=== PATIENT | male | born 1960 | race Caucasian/White ===

== ENCOUNTER → 2019-11-08 | Outpatient (CLI) | payer OTHER | END | disposition home or self-care (01) | LOC: ECT 10:59 | DX: F33.2 Major depressive disorder, recurrent severe without psychotic features (principal); F41.9 Anxiety disorder, unspecified; G47.33 Obstructive sleep apnea (adult) (pediatric); E78.5 Hyperlipidemia, unspecified; Z72.89 Other problems related to lifestyle; R45.851 Suicidal ideations; Z79.899 Other long term (current) drug therapy ==

== ENCOUNTER 2019-12-17 06:27 | Outpatient (RCR) | payer OTHER ==
[2019-12-17] VITALS (7 sets, daily range): BP systolic 141–171; BP diastolic 83–99
[~2019-12-17] VITALS: Ht 177.8 cm; Wt 93.0 kg
[2019-12-17] MEDS ORDERED: Succinylcholine 20mg/ml 10ml vial ONE (06:28)
[2019-12-17] MEDS ORDERED: Ketorolac 30mg Inj ONE (06:28)
[2019-12-17] MEDS ORDERED: NS 500ML ONE (06:28)
[2019-12-17] MEDS ORDERED: Methohexital Sodium Syr 100mg/10ml IVP ONE (06:28)
[2019-12-17] MEDS ORDERED: Ketorolac 30mg Inj IM ONE (10:30)
[2019-12-20] MEDS ORDERED: Ketorolac 30mg Inj ONE (09:00)
[2019-12-20] MEDS ORDERED: NS 500ML ONE (09:00)
[2019-12-20] MEDS ORDERED: Methohexital Sodium Syr 100mg/10ml IVP ONE (09:00)
[2019-12-20] MEDS ORDERED: Succinylcholine 20mg/ml 10ml vial ONE (09:00)
[2019-12-20 12:43] VITALS: BP 142/89
[2019-12-20] MEDS ORDERED: Lidocaine 2% 100mg/5ml Carp IV PRN (13:09)
[2019-12-20] MEDS ORDERED: Atropine Sulfate 0.4mg/ml inj IVP PRN (13:09)
[2019-12-20 13:10] VITALS: BP 175/54
[2019-12-20 13:15] VITALS: BP 155/89
[2019-12-20 13:20] VITALS: BP 161/84
[2019-12-20 13:25] VITALS: BP 152/80
== END 2019-12-21 | disposition home or self-care (01) ==
LOC: ECT 06:27
DX: F33.2 Major depressive disorder, recurrent severe without psychotic features (principal); G47.33 Obstructive sleep apnea (adult) (pediatric); E78.5 Hyperlipidemia, unspecified; F41.9 Anxiety disorder, unspecified
CPT/HCPCS: 90870; J0330; J1885; J2405; J7040

== ENCOUNTER 2019-12-22 10:45 | Outpatient (RCR) | payer OTHER ==
[~2019-12-22] VITALS: Ht 177.8 cm; Wt 93.0 kg
[~2019-12-22 10:45] MED LIST: Ketorolac 30mg Inj ONE; Methohexital Sodium Syr 100mg/10ml IVP ONE; NS 500ML ONE; Succinylcholine 20mg/ml 10ml vial ONE
[2019-12-22] MEDS ORDERED: Ketorolac 30mg Inj ONE ×3 (10:46)
[2019-12-22] MEDS ORDERED: Methohexital Sodium Syr 100mg/10ml IVP ONE ×3 (10:46)
[2019-12-22] MEDS ORDERED: NS 500ML ONE ×3 (10:46)
[2019-12-22] MEDS ORDERED: Succinylcholine 20mg/ml 10ml vial ONE ×3 (10:46)
[2019-12-22 11:05] VITALS: BP 138/80
[2019-12-22 11:18] VITALS: BP 185/80
[2019-12-22 11:23] VITALS: BP 176/77
[2019-12-22 11:28] VITALS: BP 163/89
[2019-12-22 11:33] VITALS: BP 160/82
[2019-12-27] MEDS ORDERED: Ketorolac 30mg Inj ONE (06:00)
[2019-12-27] MEDS ORDERED: Methohexital Sodium Syr 100mg/10ml IVP ONE (06:00)
[2019-12-27] MEDS ORDERED: NS 500ML ONE (06:00)
[2019-12-27] MEDS ORDERED: Succinylcholine 20mg/ml 10ml vial ONE (06:00)
[2019-12-27 10:50] VITALS: BP 140/86
[2019-12-27] MEDS ORDERED: Atropine Sulfate 0.4mg/ml inj IVP PRN (11:09)
[2019-12-27] MEDS ORDERED: Lidocaine 2% 100mg/5ml Carp IV PRN (11:09)
[2019-12-27 11:10] VITALS: BP 159/82
[2019-12-27 11:15] VITALS: BP 172/89
[2019-12-27 11:20] VITALS: BP 146/72
[2019-12-27 11:25] VITALS: BP 164/88
[2019-12-29] MEDS ORDERED: NS 500ML ONE (06:00)
[2019-12-29] MEDS ORDERED: Succinylcholine 20mg/ml 10ml vial ONE (06:00)
[2019-12-29] MEDS ORDERED: Ketorolac 30mg Inj ONE (06:00)
[2019-12-29] MEDS ORDERED: Methohexital Sodium Syr 100mg/10ml IVP ONE (06:00)
[2019-12-29 10:07] VITALS: BP 136/90
[2019-12-29 10:18] VITALS: BP 186/94
[2019-12-29 10:23] VITALS: BP 161/76
[2019-12-29 10:28] VITALS: BP 166/98
[2019-12-29 10:33] VITALS: BP 153/87
[2019-12-31] MEDS ORDERED: Ketorolac 30mg Inj ONE (06:00)
[2019-12-31] MEDS ORDERED: NS 500ML ONE (06:00)
[2019-12-31] MEDS ORDERED: Succinylcholine 20mg/ml 10ml vial ONE (06:00)
[2019-12-31] MEDS ORDERED: Methohexital Sodium Syr 100mg/10ml IVP ONE (06:00)
[2019-12-31 10:09] VITALS: BP 145/98
[2019-12-31 10:22] VITALS: BP 178/93
[2019-12-31 10:27] VITALS: BP 185/90
[2019-12-31 10:32] VITALS: BP 166/87
[2019-12-31 10:37] VITALS: BP 163/89
[2020-01-03] MEDS ORDERED: NS 500ML ONE (07:00)
[2020-01-03] MEDS ORDERED: Ketorolac 30mg Inj ONE (07:00)
[2020-01-03] MEDS ORDERED: Succinylcholine 20mg/ml 10ml vial ONE (07:00)
[2020-01-03] MEDS ORDERED: Methohexital Sodium Syr 100mg/10ml IVP ONE (07:00)
[2020-01-03 11:16] VITALS: BP 148/94
[2020-01-03 11:35] VITALS: BP 181/92
[2020-01-03] MEDS ORDERED: Atropine Sulfate 0.4mg/ml inj IVP PRN (11:39)
[2020-01-03] MEDS ORDERED: Lidocaine 2% 100mg/5ml Carp IV PRN (11:39)
[2020-01-03 11:40] VITALS: BP 184/94
[2020-01-03 11:45] VITALS: BP 176/94
[2020-01-03 11:50] VITALS: BP 164/94
[2020-01-05] MEDS ORDERED: Methohexital Sodium Syr 100mg/10ml IVP ONE (08:00)
[2020-01-05] MEDS ORDERED: Ketorolac 60mg Inj IM ONE (08:00)
[2020-01-05] MEDS ORDERED: Succinylcholine 20mg/ml 10ml vial ONE (08:00)
[2020-01-05] MEDS ORDERED: NS 500ML ONE (08:00)
[2020-01-05 10:34] VITALS: BP 138/99
[2020-01-05 10:46] VITALS: BP 174/90
[2020-01-05 10:51] VITALS: BP 154/75
[2020-01-05 10:56] VITALS: BP 155/81
[2020-01-05 11:01] VITALS: BP 154/75
[2020-01-07] MEDS ORDERED: Methohexital Sodium Syr 100mg/10ml IVP ONE (08:00)
[2020-01-07] MEDS ORDERED: Succinylcholine 20mg/ml 10ml vial ONE (08:00)
[2020-01-07] MEDS ORDERED: NS 500ML ONE (08:00)
[2020-01-07] MEDS ORDERED: Ketorolac 30mg Inj ONE (08:00)
[2020-01-07 10:46] VITALS: BP 142/90
[2020-01-07 10:59] VITALS: BP 180/97
[2020-01-07 11:04] VITALS: BP 178/95
[2020-01-07 11:09] VITALS: BP 165/93
[2020-01-07 11:14] VITALS: BP 167/83
[2020-01-10 10:26] VITALS: BP 137/94
[2020-01-10 10:37] VITALS: BP 162/101
[2020-01-10 10:42] VITALS: BP 156/97
[2020-01-10 10:47] VITALS: BP 159/79
[2020-01-10 10:52] VITALS: BP 157/86
[2020-01-12] MEDS ORDERED: NS 500ML ONE (07:00)
[2020-01-12] MEDS ORDERED: Methohexital Sodium Syr 100mg/10ml IVP ONE (07:00)
[2020-01-12] MEDS ORDERED: Succinylcholine 20mg/ml 10ml vial ONE (07:00)
[2020-01-12] MEDS ORDERED: Ketorolac 30mg Inj ONE (07:00)
[2020-01-12 10:34] VITALS: BP 138/90
[2020-01-12] MEDS ORDERED: Lidocaine 2% 100mg/5ml Carp IV PRN (10:49)
[2020-01-12] MEDS ORDERED: Atropine Sulfate 0.4mg/ml inj IVP PRN (10:49)
[2020-01-12 10:50] VITALS: BP 164/86
[2020-01-12 10:55] VITALS: BP 166/92
[2020-01-12 11:00] VITALS: BP 165/85
[2020-01-12 11:05] VITALS: BP 160/95
[2020-01-14] VITALS (7 sets, daily range): BP systolic 133–162; BP diastolic 75–91
[2020-01-14] MEDS ORDERED: NS 500ML ONE (07:00)
[2020-01-14] MEDS ORDERED: Ketorolac 30mg Inj ONE (07:00)
[2020-01-14] MEDS ORDERED: Midazolam 2mg/2ml Inj ONE (07:00)
[2020-01-14] MEDS ORDERED: Methohexital Sodium Syr 100mg/10ml IVP ONE (07:00)
[2020-01-14] MEDS ORDERED: Succinylcholine 20mg/ml 10ml vial ONE (07:00)
[2020-01-17] VITALS (7 sets, daily range): BP systolic 149–180; BP diastolic 81–99
[2020-01-17] MEDS ORDERED: Succinylcholine 20mg/ml 10ml vial ONE (07:00)
[2020-01-17] MEDS ORDERED: NS 500ML ONE (07:00)
[2020-01-17] MEDS ORDERED: Methohexital Sodium Syr 100mg/10ml IVP ONE (07:00)
[2020-01-17] MEDS ORDERED: Ketorolac 60mg Inj IM ONE (07:00)
[2020-01-17] MEDS ORDERED: Atropine Sulfate 0.4mg/ml inj IVP PRN (09:44)
[2020-01-17] MEDS ORDERED: Lidocaine 2% 100mg/5ml Carp IV PRN (09:44)
[2020-01-19] VITALS (7 sets, daily range): BP systolic 146–164; BP diastolic 81–105
[2020-01-19] MEDS ORDERED: NS 500ML ONE (06:00)
[2020-01-19] MEDS ORDERED: Methohexital Sodium Syr 100mg/10ml IVP ONE (06:00)
[2020-01-19] MEDS ORDERED: Ketorolac 30mg Inj ONE (06:00)
[2020-01-19] MEDS ORDERED: Succinylcholine 20mg/ml 10ml vial ONE (06:00)
[2020-01-21] VITALS (7 sets, daily range): BP systolic 121–151; BP diastolic 40–96
== END 2020-01-21 | disposition home or self-care (01) ==
LOC: ECT 10:45
DX: F33.2 Major depressive disorder, recurrent severe without psychotic features (principal)
CPT/HCPCS: 90870; J0330; J1885; J2250; J2405; J7040

== ENCOUNTER 2020-01-24 12:15 | Outpatient (RCR) | payer OTHER ==
[2020-01-24] VITALS (7 sets, daily range): BP systolic 126–166; BP diastolic 78–95
[~2020-01-24] VITALS: Ht 30.5 cm; Wt 0.5 kg
[~2020-01-24 12:15] MED LIST changes: +Atropine Sulfate 0.4mg/ml inj IVP PRN; -Ketorolac 30mg Inj ONE; +Lidocaine 2% 100mg/5ml Carp IV PRN; -Methohexital Sodium Syr 100mg/10ml IVP ONE; -NS 500ML ONE; -Succinylcholine 20mg/ml 10ml vial ONE
[2020-01-24] MEDS ORDERED: NS 500ML ONE (12:16)
[2020-01-24] MEDS ORDERED: Ketorolac 60mg Inj IM ONE (12:16)
[2020-01-24] MEDS ORDERED: Methohexital Sodium Syr 100mg/10ml IVP ONE (12:16)
[2020-01-24] MEDS ORDERED: Succinylcholine 20mg/ml 10ml vial ONE (12:16)
== END 2020-02-21 | disposition home or self-care (01) ==
LOC: ECT 12:15
DX: F33.2 Major depressive disorder, recurrent severe without psychotic features (principal)
CPT/HCPCS: 90870; J0330; J2405; J7040